=== PATIENT | male | born 1995 | race Asian ===

== ENCOUNTER 2017-01-23 15:35 | Emergency (ER) | payer SELFPAY ==
[2017-01-23 15:44] VITALS: BP 123/67
[2017-01-23] MEDS ORDERED: NEOM28.32 TP (15:51)
--- NOTE | 2017-01-23 15:52 | PHYS DOC ---
Adult General Chief Complaint Chief Complaint: LACERATION/AVULSION [facility] HPI Patient is a 21 year old male presents with left forehead laceration that happened yesterday. Patient states he was playing soccer and fell down cutting himself on something on the ground. Patient denies any loss of consciousness. He has put some green traditional vegetables remedies on the forehead laceration. 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 Review of Systems Review of Systems Constitutional: Denies fever or chills [] Eyes: Denies change in visual acuity, redness, or eye pain [] HENT: Denies nasal congestion or sore throat [] Respiratory: Denies cough or shortness of breath [] Cardiovascular: No additional information not addressed in HPI [] GI: Denies abdominal pain, nausea, vomiting, bloody stools or diarrhea [] : Denies dysuria or hematuria [] Musculoskeletal: Denies back pain or joint pain [] Integument:forehead laceration Neurologic: Denies headache, focal weakness or sensory changes [] All other systems were reviewed and found to be within normal limits, except as documented in this note. Physical Exam Physical Exam Constitutional: Well developed, well nourished, no acute distress, non-toxic appearance. [] HENT: Normocephalic, atraumatic, bilateral external ears normal, oropharynx moist, no oral exudates, nose normal. [] Eyes: PERRLA, EOMI, conjunctiva normal, no discharge. [] Neck: Normal range of motion, no tenderness, supple, no stridor. [] Cardiovascular:Heart rate regular rhythm, no murmur [] Lungs & Thorax: Bilateral breath sounds clear to auscultation [] Abdomen: Bowel sounds normal, soft, no tenderness, no masses, no pulsatile masses. [] Skin: Warm, dry, left forehead with abrasions with green vegetables which were removed and area cleaned by me Back: No tenderness, no CVA tenderness. [] Extremities: No tenderness, no cyanosis, no clubbing, ROM intact, no edema. [] Neurologic: Alert and oriented X 3, normal motor function, normal sensory function, no focal deficits noted. Cranial nerves II-XII intact. Psychologic: Affect normal, judgement normal, mood normal. [] EKG EKG [] Radiology/Procedures Radiology/Procedures [] Course & Med Decision Making Course & Med Decision Making Pertinent Labs and Imaging studies reviewed. (See chart for details) Patient has left forehead laceration that happened yesterday after he fell. Tetanus up-to-date. He had put green vegetables to the area which were removed in the ED. Instructed him to apply Neosporin to the area and not any other traditional remedies to the area. Provided him return precautions and discharged in stable condition. Dragon Disclaimer Dragon Disclaimer This electronic medical record was generated, in whole or in part, using a voice recognition dictation system. Departure Departure Impression: Primary Impression: Forehead laceration Additional Impression: Fall Disposition: HOME, SELF-CARE Condition: STABLE Patient Instructions: Fall Prevention and Home Safety, Laceration Care, Adult Additional Instructions: You were seen with forehead laceration. Keep the area clean and dry. Do not apply traditional remedies to the area. Apply Neosporin to the area twice a day. You can wash the area with soap and water. Monitor the area for signs of infection including increased redness to the area, yellow drainage from the area , increased warmth to the area and return to the ED if they occur. Follow-up with your own doctor in 1-2 weeks. Scripts Neomy Sulf/Bacitrac Zn/Poly (NEOSPORIN OINTMENT) 28.3 Gm Oint...g. 1 APPLIC TP BID, #1 MISC Prov: DAGOBERTO GUSTAFSON APRN 01/23/17 Problem Qualifiers Primary Impression: Forehead laceration Encounter type: initial encounter Qualified Codes: S01.81XA - Laceration without foreign body of other part of head, initial encounter Additional Impression: Fall Encounter type: initial encounter Qualified Codes: W19.XXXA - Unspecified fall, initial encounter DAGOBERTO UGSTAFSON APRN Jan 23, 2017 15:52
== END 2017-01-23 15:55 | disposition home or self-care (01) ==
LOC: ER 15:35
DX: S01.81XA Laceration without foreign body of other part of head, initial encounter (principal); W18.09XA Striking against other object with subsequent fall, initial encounter; Y93.66 Activity, soccer; Y99.8 Other external cause status; Y92.89 Other specified places as the place of occurrence of the external cause
CPT/HCPCS: 99282